=== PATIENT | male | born 1965 ===

== ENCOUNTER 2017-12-02 21:54 | Emergency (ER) | payer SELFPAY ==
[2017-12-02 22:09] VITALS: RESP 20; TEMP 97.2; O2SAT 100
[2017-12-02 22:32] LABS: BASO # 0.1 K/uL (0.0-0.2); BASO % 0.8 % (0.0-2.0); EOS # 0.3 K/uL (0.0-0.7); EOS % 3.9 % (0.0-4.0); HEMOGLOBIN 14.9 g/dL (12.0-18.0); LYMPH % 41.6 % (20.0-40.0); MEAN CELL VOLUME 90.8 fL (80.0-94.0); MEAN CORPUSCULAR HEMOGLOBIN 31.2 pg (27.0-31.0); MEAN CORPUSCULAR HGB CONC 34.3 g/dL (33.0-37.0); MEAN PLATELET VOLUME 8.6 fL (7.2-11.7); MONO # 0.8 K/uL (0.0-0.8); MONO % 10.8 % (0.0-10.0); NEUT # 3.1 K/uL (1.8-7.0); NEUT % 42.9 % (50.0-75.0); NRBC % 0.1 % (0.0-2.0); RBC 4.77 Mil/uL (4.40-5.90); RED CELL DISTRIBUTION WIDTH 12.4 % (11.5-14.5); WHITE BLOOD COUNT 7.1 K/uL (4.8-10.8)
[2017-12-02 22:44] LABS: BLOOD UREA NITROGEN 12 mg/dL (9-20); CALCIUM 9.3 mg/dl (8.6-10.4); GFR NON-AFRICAN AMERICAN > 60
--- NOTE | 2017-12-02 23:01 | C.PDOC ---
History Of Present Illness 52 y/o male with htn, currently visiting, c/o 3 day hx of headache. pt sts pain sort of all over and then points to right tenriism and sts he has pain there. pt c/o photophobia, no nausea or vomiting, no neck dtiffness, no fever. pt took one Tylenol, per day with no improvement. pt sts he had a similar headache 3 months ago, was [place] in [place] and was told 'his blood was too high' and he needed some drained; pt unaware name of condition(?polycythemia?) and that if headache returned, he should go to ER. denies any trauma to head. Time Seen by Provider: 12/02/17 22:16 Chief Complaint (Nursing): Headache History Per: Patient History/Exam Limitations: no limitations Onset/Duration Of Symptoms: Days (3) Current Symptoms Are (Timing): Still Present Severity: Moderate Pain Scale Rating Of: 8 Quality: "Pain" Preceeding Symptoms: denies: Visual Disturbances Associated Symptoms: Photophobia. denies: Blurred Vision, Nausea, Vomiting, Extremity Weakness Recent travel outside of the [place]: Yes Past Medical History Reviewed: Historical Data, Nursing Documentation, Vital Signs Vital Signs: Last Vital Signs Temp 97.2 F L 12/02/17 22:05 Pulse 80 12/02/17 22:05 Resp 20 12/02/17 22:05 BP 154/100 H 12/02/17 22:05 Pulse Ox 100 12/02/17 22:05 - Medical History PMH: HTN Family History: States: Unknown Family Hx - Social History Hx Alcohol Use: No Hx Substance Use: No Review Of Systems Constitutional: Negative for: Fever, Chills Eyes: Negative for: Pain, Vision Change ENT: Negative for: Ear Pain Cardiovascular: Negative for: Chest Pain Respiratory: Negative for: Cough Gastrointestinal: Negative for: Nausea, Vomiting Musculoskeletal: Negative for: Neck Pain Skin: Negative for: Rash Neurological: Positive for: Headache. Negative for: Altered Mental Status, Dizziness Physical Exam - Physical Exam Appears: Non-toxic, No Acute Distress (smiling) Skin: Warm, Dry Head: Atraumatic, Normacephalic, Other (mild tenderness right tenriism) Eye(s): bilateral: Normal Inspection Ear(s): Bilateral: Normal Nose: No Discharge Oral Mucosa: Moist Neck: Supple, Other (no nuchal rigidity) Cardiovascular: Rhythm Regular, No Murmur Respiratory: Normal Breath Sounds, No Rales, No Rhonchi, No Wheezing Gastrointestinal/Abdominal: Bowel Sounds, Soft, No Tenderness Neurological/Psych: Oriented x3, Normal Speech, Normal Cognition, Normal Cranial Nerves, Normal Motor, Normal Sensation ED Course And Treatment - Laboratory Results Result Diagrams: 12/02/17 22:28 12/02/17 22:28 O2 Sat by Pulse Oximetry: 100 Medical Decision Making Medical Decision Making: 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 pt with normal labs, neg heg ct, neg esr. headache feb to 06/15 with tylenol. d/c home Disposition Counseled Patient/Family Regarding: Studies Performed, Diagnosis, Need For Followup - Disposition Referrals: [facility] [Outside] Disposition: HOME/ ROUTINE Disposition Time: 00:47 Condition: GOOD Additional Instructions: Follow up in medical clinic or with your doctor in [facility]. Tylenol for pain. Return to ER for any worse symptoms. Opal un seguimiento en la clnica mdica o con harden mdico en [facility]. Tylenol para el dolor. Regrese a la araseli de emergencias por cualquier sntoma peor. Instructions: Headache, Adult (DC) Forms: Gen Discharge Inst Austrian, [place] (Austrian) Print Language: DJIBOUTIAN - Clinical Impression Clinical Impression: Headache
[2017-12-02 23:32] VITALS: BP 131/65; PULSE 61
--- NOTE | 2017-12-03 07:26 | CT ---
Date of service: 12/02/2017 PROCEDURE: CT HEAD WITHOUT CONTRAST. HISTORY: headache COMPARISON: None available. TECHNIQUE: Axial computed tomography images were obtained through the head/brain without intravenous contrast. Radiation dose: Total exam DLP = 998 mGy-cm. This CT exam was performed using one or more of the following dose reduction techniques: Automated exposure control, adjustment of the mA and/or kV according to patient size, and/or use of iterative reconstruction technique. FINDINGS: HEMORRHAGE: No intracranial hemorrhage. BRAIN: No mass effect or edema. No atrophy or chronic microvascular ischemic changes. VENTRICLES: Unremarkable. No hydrocephalus. CALVARIUM: Unremarkable. PARANASAL SINUSES: Unremarkable as visualized. No significant inflammatory changes. MASTOID AIR CELLS: Unremarkable as visualized. No inflammatory changes. OTHER FINDINGS: None. IMPRESSION: No acute intracranial abnormality. If symptoms persists, consider correlation with MRI. These findings were preliminarily reported at 10:50 p.m. on 12/02/[address] Chente Diggs from [place].
== END 2017-12-03 00:51 | disposition home or self-care (01) ==
LOC: C.ER 21:54
DX: R51 Headache (principal)